=== PATIENT | female | born 1940 | race Caucasian/White ===

== ENCOUNTER 2020-12-01 09:08 | Emergency (ER) | payer MEDICARE, OTHER ==
[2020-12-01] MEDS ORDERED: Sodium Chloride 0.9% 10 ML Syringe FLUSH PRN (09:48)
[2020-12-01] MEDS: fentaNYL 50 MCG/ML SDV IVPUSH ONE ×2 (10:01→11:00)
[2020-12-01 10:12] LABS: CHLORIDE,CL 104 mmol/L (98-107); SODIUM,NA 141 mmol/L (136-145)
--- NOTE | 2020-12-01 10:15 | EDM.PDOC ---
ED HPI GENERAL MEDICAL PROBLEM - General Stated Complaint: RIGHT SIDE PAIN Time Seen by Provider: 12/01/20 09:35 Source of Information: Reports: Patient - History of Present Illness INITIAL COMMENTS - FREE TEXT/NARRATIVE: Jody is an 80 y/o female who comes to the ER with complaints of pain in her RUQ that started about a week ago and has just continued. She now reports that pain has migrated down to her right hip region and then shoots down her right thigh. She was seen by Dr Eid on 11-26 for the RUQ pain and labs were done. Xrays were negative at that time. Dr Eid's note does advised CT if her Chest and Abdomen if her pain persists. She woke up this AM very sweaty. She rates the pain 10. She took a Tramadol about midnight then a Tylenol at 2 am and this has not really seemed to help her pain. She did have a soft light colored stool this AM. - Related Data Allergies Allergy/AdvReac Type Severity Reaction Status Date / Time No Known Allergies Allergy Verified 09/18/15 07:27 Home Meds: Home Meds ALPRAZolam [Alprazolam] 0.25 mg PO Q6H PRN 09/12/15 [History] Aspirin 81 mg PO BRK 09/12/15 [History] Cyclobenzaprine [Flexeril] 5 mg PO TID PRN 09/12/15 [History] Diclofenac Sodium [Voltaren 1% Gel] 1 applic TOP BID PRN 09/12/15 [History] Docusate Sodium [Colace] 100 mg PO BID 09/12/15 [History] Fish Oil/Mehama-3 Fatty Acids [Fish Oil 1,000 MG] 1,000 mg PO TID 09/12/15 [History] Fluticasone Propionate [Flonase] 2 spray NASBOTH DAILY PRN 09/12/15 [History] Losartan Potassium [Cozaar] 200 mg PO DAILY 09/12/15 [History] Melatonin 3 mg PO BEDTIME PRN 09/12/15 [History] Multivitamin [Daily Multiple Vitamin] 1 tab PO DAILY 09/12/15 [History] Naproxen Sodium [Aleve] 220 - 440 mg PO BID PRN 09/12/15 [History] Naproxen [IJD: Naproxen] 500 mg PO BIDMEALS 09/12/15 [History] Pravastatin [Pravachol] 40 mg PO DAILY 09/12/15 [History] Vitamin B Complex [B Complex] 1 each PO DAILY 09/12/15 [History] Sodium Chloride 0.9% [Saline Flush] 10 ml FLUSH ASDIRECTED PRN syringe 12/01/20 [Rx] oxyCODONE 5 mg PO Q8H PRN #5 cup 12/01/20 [Rx] Past Medical History HEENT History: Reports: Cataract Other HEENT History: HEARING DISORDER (BOTH EARS). PRESBYOPIA. HERMATROPIA. MYOPIA Cardiovascular History: Reports: High Cholesterol, Hypertension Other Cardiovascular History: SINUS BRADYCARDIA. PERFORATION OF TYMPANIC MEMBRANE Respiratory History: Reports: None Gastrointestinal History: Reports: GERD Genitourinary History: Reports: Other (See Below) Other Genitourinary History: HEMATURIA Musculoskeletal History: Reports: Arthritis, Back Pain, Chronic Other Musculoskeletal History: ARTHROSCOPY WRIST SURGICAL INT FIXN FX INSTABILITY. WRIST FRACTURE REPAIR. 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 DISORDER OF BONE. CARPAL TUNNEL SYNDROME Neurological History: Reports: None Psychiatric History: Reports: Anxiety, Depression Other Psychiatric History: INSOMNIA. MALAISE AND FATIGUE. HIGH RISK MEDICATION USE Other Endocrine/Metabolic History: RPR RUPTURED MUSCULOTENDINOUS CUFF OPEN ACUTE. HYPERGLYCEMIA. SYMPTOMATIC MENOPAUSAL OR FEMALE CLIMACTERIC STATES Other Hematologic History: CLOTTING DISORDER. 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 - Past Surgical History HEENT Surgical History: Reports: Myringotomy w Tube(s), Tonsillectomy GI Surgical History: Reports: Cholecystectomy, Colonoscopy Musculoskeletal Surgical History: Reports: Arthroscopic Procedure, Knee Replacement Review of Systems - Review of Systems Review Of Systems: See Below Constitutional: Reports: Chills Eyes: Reports: No Symptoms Ears: Reports: No Symptoms Nose: Reports: No Symptoms Mouth/Throat: Reports: No Symptoms Respiratory: Reports: No Symptoms Cardiovascular: Reports: No Symptoms GI/Abdominal: Reports: Abdominal Pain (RUQ pain) Genitourinary: Reports: No Symptoms Musculoskeletal: Reports: Other (Right Hip Pain) Skin: Reports: No Symptoms Neurological: Reports: No Symptoms Psychiatric: Reports: No Symptoms ED EXAM, GENERAL - Physical Exam Exam: See Below General Appearance: Alert, WD/WN, No Apparent Distress (Elderly female, neatly dressed and sitting in a chair.) Eye Exam: Bilateral Eye: PERRL Ears: Normal External Exam, Normal Canal, Hearing Grossly Normal Nose: Normal Inspection, Normal Mucosa Throat/Mouth: Normal Inspection, Normal Lips, Normal Voice Head: Atraumatic, Normocephalic Neck: Supple Respiratory/Chest: No Respiratory Distress, Lungs Clear, Chest Non-Tender Cardiovascular: Normal Peripheral Pulses, Regular Rate, Rhythm, No Murmur GI/Abdominal: Normal Bowel Sounds, Soft, Tender (RUQ) (Female) Exam: Deferred Rectal (Female) Exam: Deferred Extremities: Normal Inspection, No Pedal Edema, Normal Capillary Refill, Other (Note tenderness over right hip region with palpation, ROM normal) Neurological: Alert, Oriented, CN II-XII Intact Psychiatric: Normal Affect, Normal Mood Skin Exam: Warm, Dry, Intact, Normal Color Lymphatic: No Adenopathy Course - Vital Signs Text/Narrative:: 0935 The patient was seen by the GEOLOGIST. Labs and Xrays ordered. She was given Fentanyl 25mcg IVP for pain. 1050 Patient pain returning, Fentanyl 25mcg IVP repeated. Case reviewed with Dr Eid who agrees that patient needs further diagnostic imaging. Currently no CT available here in [place]. Offered to send patient to [place] or [place], both of which she declines at this time. 1135 Pain better from the Fentanyl, but not resolved. Patient still decline going to another hospital for CT Imaging. GEOLOGIST reviewed risks of waiting for imaging and still will wait until available here. Advised the benefits of getting the test today would help make a definitive dx. Patient has the capacity to make her medical decisions and understands the risks. Will send home with Oxycodone along with her APAP since the Tramadol is not helping. She was given written discharge instructions and left the ER in stable condition. Will plan for her to return for CT of Chest/Abd/Pelvis W Contrast when the scanner is up and running, ordered as an outpatient. - Orders/Labs/Meds Orders: Active Orders 24 hr Category Date Time Status CULTURE URINE [RM] Stat Lab 12/01/20 09:30 Received Sodium Chloride 0.9% [Saline Flush] Med 12/01/20 09:48 Active 10 ml FLUSH ASDIRECTED PRN Saline Lock Insert [OM.PC] Stat Oth 12/01/20 09:48 Ordered Medication Orders Sodium Chloride (Sodium Chloride 0.9% 10 Ml Syringe) 10 ml FLUSH ASDIRECTED PRN PRN Reason: Keep Vein Open Labs: Laboratory Tests 12/01/20 12/01/20 12/01/20 Range/Units 09:25 09:25 09:30 WBC 9.8 (4.0-10.0) x10^3/uL RBC 5.12 (4.00-5.50) x10^6/uL Hgb 14.6 (12.0-16.0) g/dL Hct 42.8 (33.0-47.0) % MCV 83.6 (78.0-93.0) fL MCH 28.5 (26.0-32.0) pg MCHC 34.1 (32.0-36.0) g/dL RDW Coeff of Beto 13.3 (10.0-15.0) % Plt Count 316 (130-400) x10^3/uL Immature Gran % (Auto) 0.10 (0.00-0.43) % Neut % (Auto) 69.8 (50.0-80.0) % Lymph % (Auto) 18.4 L (25.0-50.0) % [place] % (Auto) 9.9 (2.0-11.0) % Eos % (Auto) 1.4 (0.0-4.0) % Baso % (Auto) 0.4 (0.2-1.2) % Neut # (Auto) 6.9 (1.8-7.7) x10^3/uL Lymph # (Auto) 1.8 (1.0-4.8) x10^3/uL [place] # (Auto) 1.0 H (0.0-0.8) x10^3/uL Eos # (Auto) 0.1 (0.0-0.5) x10^3/uL Baso # (Auto) 0.0 (0.0-0.2) x10^3/uL Immature Gran # (Auto) 0.01 (0.00-0.07) x10^3/uL Sodium 141 (136-145) mmol/L Potassium 4.2 (3.5-5.1) mmol/L Chloride 104 (98-107) mmol/L Carbon Dioxide 27 (21-32) mmol/L Anion Gap 14.2 (5-15) mmol/L BUN 23 H (7-18) mg/dL Creatinine 0.8 (0.55-1.02) mg/dL Est Cr Clr Drug Dosing TNP Estimated GFR (MDRD) > 60 Glucose 106 H (70-99) mg/dL Calcium 8.7 (8.5-10.1) mg/dL Corrected Calcium 8.9 (8.5-10.1) mg/dL Magnesium 2.1 (1.8-2.4) mg/dL Total Bilirubin 0.9 (0.2-1.0) mg/dL AST 14 L (15-37) U/L ALT 16 (14-59) U/L Alkaline Phosphatase 82 (46-116) U/L C-Reactive Protein 4.0 H (<=0.9) mg/dL Total Protein 7.2 (6.4-8.2) g/dL Albumin 3.8 (3.4-5.0) g/dL Globulin 3.4 Albumin/Globulin Ratio 1.12 Amylase 37 (25-115) U/L Lipase 72 L (73-393) U/L Urine Color Yellow (YELLOW) Urine Appearance Clear (CLEAR) Urine pH 6.0 (5.0-8.0) Ur Specific [place] 1.025 Urine Protein 30 H (NEGATIVE) mg/dL Urine Glucose (UA) Negative (NEGATIVE) mg/dL Urine Ketones Negative (NEGATIVE) mg/dL Urine Occult Blood Small H (NEGATIVE) Urine Nitrite Negative (NEGATIVE) Urine Bilirubin Small H (NEGATIVE) Urine Urobilinogen 0.2 (0.2) EU/dL Ur Leukocyte Esterase Trace H (NEGATIVE) Urine RBC 0-5 (NOT SEEN) /HPF Urine WBC 0-5 (NOT SEEN) /HPF Ur Squamous Epith Cells Moderate H (NOT SEEN) /HPF Urine Bacteria Few H (NOT SEEN) /HPF Urine Mucus Moderate H (NOT SEEN) /LPF Meds: Medications Generic Name Dose Route Start Last Admin Trade Name Freq PRN Reason Stop Dose Admin Sodium Chloride 10 ml 12/01/20 09:48 Sodium Chloride 0.9% 10 Ml Syringe FLUSH ASDIRECTED PRN Keep Vein Open Discontinued Medications Generic Name Dose Route Start Last Admin Trade Name Freq PRN Reason Stop Dose Admin Fentanyl 25 mcg 12/01/20 09:46 12/01/20 10:01 Fentanyl 50 Mcg/Ml Sdv IVPUSH 12/01/20 09:47 25 mcg ONETIME ONE Administration Fentanyl 25 mcg 12/01/20 10:51 12/01/20 11:00 Fentanyl 50 Mcg/Ml Sdv IVPUSH 12/01/20 10:52 25 mcg ONETIME ONE Administration Departure - Departure Time of Disposition: 11:41 Disposition: Home, Self-Care 01 Condition: Good Clinical Impression: RUQ abdominal pain, Hip pain, right - Discharge Information *PRESCRIPTION DRUG MONITORING PROGRAM REVIEWED*: No *COPY OF PRESCRIPTION DRUG MONITORING REPORT IN PATIENT JOAQUÍN: No Prescriptions: oxyCODONE 5 mg PO Q8H PRN #5 cup PRN Reason: Pain (Severe 7-10) Instructions: Hip Pain, Abdominal Pain, Adult Referrals: Nya Eid MD [Primary Care Provider] - Additional Instructions: -Oxycodone 5mg oral every 8 hours as needed for severe pain #5(Rx) -Continue APAP 650mg oral every 4-6 hours -Ice/heat -Return to the ER if pain persists and you want to be transferred for a CT -Follow up with PCP if you prefer - Problem List & Annotations (1) RUQ abdominal pain SNOMED Code(s): 504664234 Code(s): R10.11 - RIGHT UPPER QUADRANT PAIN Status: Acute Current Visit: Yes Annotation/Comment:: CT Chest/Abd/Pelvis W ordered when available. Labs negative today. (2) Hip pain, right SNOMED Code(s): 64768120 Code(s): M25.551 - PAIN IN RIGHT HIP Status: Acute Current Visit: Yes Annotation/Comment:: Sent home with Oxycodone IR 5mg po q 8hr #5 since Tramadol is not working. Advised to continue the APAP. Xrays showed OSteoarthritis, but no other acute findings. - Problem List Review Problem List Initiated/Reviewed/Updated: Yes - My Orders Last 24 Hours: My Active Orders 12/01/20 09:30 CULTURE URINE [RM] Stat 12/01/20 09:48 Sodium Chloride 0.9% [Saline Flush] 10 ml FLUSH ASDIRECTED PRN Saline Lock Insert [OM.PC] Stat - Assessment/Plan Last 24 Hours: My Active Orders 12/01/20 09:30 CULTURE URINE [RM] Stat 12/01/20 09:48 Sodium Chloride 0.9% [Saline Flush] 10 ml FLUSH ASDIRECTED PRN Saline Lock Insert [OM.PC] Stat Plan: See Above.
[2020-12-01 10:21] LABS: ANION GAP 14.2 mmol/L (5-15)
--- NOTE | 2020-12-01 10:49 | CR ---
[id number] RAD/RAD Chest PA or AP 1V EXAM: RAD Chest PA or AP 1V INDICATION: RIGHT UPPER QUADRANT ABDOMEN PAIN. COMPARISON: None. DISCUSSION: Cardiomediastinal silhouette is normal in size and contour. Elevation of the left hemidiaphragm. No infiltrate, effusion, pneumothorax, or edema. IMPRESSION: No acute cardiopulmonary abnormality. Aniceto Guerrero DO 12/01/20 1048 Thank you for allowing us to participate in the care of your patient.
--- NOTE | 2020-12-01 10:51 | CR ---
[id number] RAD/RAD Pelvis 1V W 2V Right Hip EXAM: RAD Pelvis 1V W 2V Right Hip INDICATION: RIGHT HIP PAIN. COMPARISON: None. DISCUSSION: No fracture, dislocation or other acute findings. 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 Mild osteoarthritis. Americo Simmons MD 12/01/20 1049 Thank you for allowing us to participate in the care of your patient.
[2020-12-01 19:41] VITALS: BP 117/67; PULSE 68
== END 2020-12-01 12:05 | disposition home or self-care (01) ==
LOC: VM.ED 09:08
DX: R10.11 Right upper quadrant pain (principal); M25.551 Pain in right hip; I10 Essential (primary) hypertension; E78.00 Pure hypercholesterolemia, unspecified; K21.9 Gastro-esophageal reflux disease without esophagitis; Z79.82 Long term (current) use of aspirin; Z79.899 Other long term (current) drug therapy
CPT/HCPCS: 71045; 80053; 81001; 82150; 83690; 83735; 85025; 86140; 87086; 96374; 96376; 99284; 99284-25; J3010

== ENCOUNTER 2020-12-18 10:38 | Day surgery (SDC) | payer MEDICARE, OTHER ==
[~2020-12-18 10:38] MED LIST: Lactated Ringers 1,000 ML IV SCH
[2020-12-18] MEDS ORDERED: fentaNYL 100 MCG/2 ML SDV ONE (11:35)
[2020-12-18] MEDS ORDERED: Propofol 200 MG/20 ML SDV ONE (11:35)
[2020-12-18 14:05] VITALS: BP 133/60; PULSE 51
--- NOTE | 2020-12-19 08:18 | OR ---
SURGERY DATE: 12/18/2020 REFERRING PROVIDER: Nya Eid MD PRE-OPERATIVE DIAGNOSIS: Abnormal CT scan of abdomen and pelvis showing lower esophageal thickening. The patient was started on omeprazole 20 mg daily. She is usually on the low-dose aspirin and she has been holding for the last week. POST-OPERATIVE DIAGNOSES: 1. 2 cm sliding-type hiatal hernia without any esophagitis. 2. Otherwise normal EGD. Antral biopsies taken using cold forceps. These are for Helicobacter pylori and path. PROCEDURE: SURGEON: Austin Gaming M.D. ANESTHESIA: Monitored anesthesia care. Jody is an 80-year-old female, who was brought to the endoscope suite after discussion of risks and benefits (including but not limited to reaction to medication, bleeding, infection, aspiration, perforation). Informed consent was obtained for monitored anesthesia care and esophagogastroduodenoscopy along with possible biopsy and/or dilatation. Pre-procedure exam including oral cavity unremarkable. The patient does have dentures. IV, oxygen, and monitors were placed. Patient was placed in the left lateral position and sedation was administered. A bite block was placed gently and scope lightly lubricated and passed through the bite block and over the tongue. Hypopharynx and vocal cords were visualized and unremarkable. Scope was passed through the cricopharynx and into the esophagus. The scope was then passed through the distal esophagus and the GE junction was visualized and photographed. The GE junction was remarkable for small 2 cm sliding-type hiatal hernia without any evidence of esophagitis. Vocal cords were visualized and unremarkable. The scope was advanced into the stomach and gastric bello was suctioned. Pylorus was identified and intubated and then the scope was advanced to the third portion of the duodenum. The second portion of duodenum was unremarkable. Duodenal bulb was visualized and unremarkable. The scope was brought back into the stomach and the pylorus and the antrum were unremarkable. Biopsies for H pylori and path were obtained from the antrum. Scope was then retroflexed to visualize the angularis, fundus, body, and cardia. These were unremarkable. The stomach was desufflated of air and then the scope was slowly withdrawn, and the esophagus was closely visualized during withdrawal all the way into the posterior pharynx and this was also unremarkable. The patient tolerated the procedure well and went to recovery in stable condition. The patient was monitored until at baseline status. Findings and discharge instructions were reviewed and the patient was discharged in good condition. COMPLICATIONS: None TOTAL TIME: 6 minutes. ESTIMATED BLOOD LOSS: Less than 1 mL. RECOMMENDATIONS/FOLLOW-UP: We will send out letter with results from the antral biopsies to rule out any presence of H. pylori. The patient can continue omeprazole as needed for symptomatic control, but there was no inflammation seen on this scope procedure today. I would like to kindly thank Dr. Eid for this referral. DMB: 12/18/2020 14:13:48 MODL: 12/18/2020 20:50:35 /[id number]
--- NOTE | 2020-12-19 08:18 | OR ---
DATE OF SURGERY: 12/18/2020 REFERRING PROVIDER: Nya Eid MD PRE-OPERATIVE DIAGNOSES: History of colon polyps. Last colonoscopy in 09/2015, revealed 1 adenoma. POST-OPERATIVE DIAGNOSES: 1. Two small polyps removed using cold forceps. a. 2 mm polyp at 70 cm. b. 3 mm polyp at 55 cm. 2. Mild right-sided diverticulosis. 3. Normal-appearing distal ileum. PROCEDURE: Colonoscopy with polypectomy x2 using cold forceps. SURGEON: Austin Gaming M.D. ANESTHESIA: Monitored anesthesia care. BOWEL PREP: Good. Jody is an 80-year-old female, who was brought to the endoscopy suite after discussing risks and benefits of the procedure. Informed consent was obtained for conscious sedation and colonoscopy with or without biopsy and/or polypectomy. We also discussed possibility of missed lesions. Pre-procedure exam was unremarkable. IV, oxygen, and monitors were placed. The patient was placed in the left lateral decubitus position. Sedation was administered and a digital rectal exam performed and unremarkable. Colonoscope was passed into the rectum and slowly advanced all the way to the cecum. Cecum was viewed and photographed. Ileocecal valve was intubated and distal ileum was normal in appearance. The colonoscope was slowly withdrawn and the mucosa was closed observed in a direct circumferential manner. The ascending colon was remarkable for 2 mm polyp at 70 cm, removed using cold forceps. Transverse colon was remarkable for 3 mm polyp at 55 cm, removed using cold forceps. The right colon was also remarkable for some mild diverticulosis. The descending colon unremarkable. Sigmoid colon unremarkable. Retroflexion was performed. Rectal mucosa unremarkable. Scope was removed. The patient tolerated the procedure well. The patient was monitored until that baseline status. Discharge instructions were reviewed and the patient was discharged in good condition. COMPLICATIONS: None. TOTAL TIME: 22 minutes. ESTIMATED BLOOD LOSS: About 1 mL. RECOMMENDATIONS/FOLLOW-UP: We will await results of path report and send letter with results. Also, I am expecting patient can be done with colonoscopies barring any change in her symptoms down the road. I would like to kindly thank Dr. Eid for this referral. DMB: 12/18/2020 14:16:50 MODL: 12/18/2020 20:33:03 /[id number]
== END 2020-12-18 14:55 | disposition home or self-care (01) ==
LOC: VM.SDS 10:38
PROVIDERS: ATTEND Family Medicine
DX: Z12.11 Encounter for screening for malignant neoplasm of colon (principal); D12.3 Benign neoplasm of transverse colon; D12.2 Benign neoplasm of ascending colon; K57.30 Diverticulosis of large intestine without perforation or abscess without bleeding; K44.9 Diaphragmatic hernia without obstruction or gangrene; I10 Essential (primary) hypertension; K21.9 Gastro-esophageal reflux disease without esophagitis; F41.9 Anxiety disorder, unspecified; Z79.899 Other long term (current) drug therapy; E78.00 Pure hypercholesterolemia, unspecified; Z98.890 Other specified postprocedural states
CPT/HCPCS: 00811; 88305; J2704; J3010

== ENCOUNTER 2022-02-15 13:17 | Emergency (ER) | payer MEDICARE, OTHER ==
[2022-02-15 13:34] VITALS: BP 135/63; PULSE 88
[2022-02-15 14:11] LABS: CHLORIDE,CL 102 mmol/L (98-107); SODIUM,NA 138 mmol/L (136-145)
[2022-02-15 14:18] LABS: ANION GAP 12.1 mmol/L (5-15); ESTIMATED GFR 73 mL/min (>=60)
[2022-02-15] MEDS: methylPREDNISolone Sodium Succinate 125 MG/2 ML SDV IM ONE (14:19)
== END 2022-02-15 15:11 | disposition home or self-care (01) ==
LOC: VM.ED 13:17
DX: M10.9 Gout, unspecified (principal); E78.00 Pure hypercholesterolemia, unspecified; I10 Essential (primary) hypertension; M19.90 Unspecified osteoarthritis, unspecified site; Z79.82 Long term (current) use of aspirin; Z79.899 Other long term (current) drug therapy
CPT/HCPCS: 36415; 80048; 84550; 85025; 85652; 86140; 96372; 99283; J2930

== ENCOUNTER 2022-08-29 07:15 | Emergency (ER) | payer MEDICARE, OTHER ==
[2022-08-29 07:28] VITALS: BP 171/82; PULSE 55
[2022-08-29 08:04] LABS: BASOPHILS PERCENT AUTO 0.2 % (0.2-1.2); EOSINOPHILS ABSOLUTE AUTO 0.1 x10^3/uL (0.0-0.5); EOSINOPHILS PERCENT AUTO 1.3 % (0.0-4.0); HEMOGLOBIN 13.5 g/dL (12.0-16.0); IMMATURE GRAN ABSOLUTE AUTO 0.02 x10^3/uL (0.00-0.07); LYMPHOCYTES ABSOLUTE AUTO 1.4 x10^3/uL (1.0-4.8); LYMPHOCYTES PERCENT AUTO 15.1 % (25.0-50.0); MEAN CORPUSCULAR HEMOGLOBIN 28.2 pg (26.0-32.0); MEAN CORPUSCULAR HGB CONC 32.9 g/dL (32.0-36.0); MEAN CORPUSCULAR VOLUME 85.8 fL (78.0-93.0); MONOCYTES ABSOLUTE AUTO 0.7 x10^3/uL (0.0-0.8); MONOCYTES PERCENT AUTO 7.8 % (2.0-11.0); NEUTROPHILS ABSOLUTE AUTO 7.1 x10^3/uL (1.8-7.7); NEUTROPHILS PERCENT AUTO 75.4 % (50.0-80.0); PLATELET COUNT,PLT 272 x10^3/uL (130-400); RED BLOOD CELL COUNT 4.78 x10^6/uL (4.00-5.50); WHITE BLOOD CELL COUNT,WBC 9.4 x10^3/uL (4.0-10.0)
[2022-08-29 08:17] LABS: BLOOD UREA NITROGEN,BUN 9 mg/dL (7-18); C-REACTIVE PROTEIN 3.72 mg/dL (<=0.30); CALCIUM 8.9 mg/dL (8.5-10.1); CARBON DIOXIDE,CO2 32 mmol/L (21-32); CHLORIDE,CL 103 mmol/L (98-107); CREATININE 0.6 mg/dL (0.55-1.02); GLUCOSE RANDOM 108 mg/dL (70-99); POTASSIUM,K 4.7 mmol/L (3.5-5.1); SODIUM,NA 142 mmol/L (136-145); URIC ACID 4.4 mg/dL (2.6-6.0)
[2022-08-29 08:19] LABS: ANION GAP 11.7 mmol/L (5-15); ESTIMATED GFR 88 mL/min (>=60)
[2022-08-29 08:46] LABS: SEDIMENTATION RATE AUTO 14 mm/hr (0-20)
[2022-08-29] MEDS: Take Home: traMADol 50 MG, 4 Tab Pack PO ONE (09:03)
== END 2022-08-29 09:07 | disposition home or self-care (01) ==
LOC: VM.ED 07:15
DX: M84.475A Pathological fracture, left foot, initial encounter for fracture (principal); M14.671 Charcot's joint, right ankle and foot; E78.00 Pure hypercholesterolemia, unspecified; I10 Essential (primary) hypertension; M19.90 Unspecified osteoarthritis, unspecified site; Z79.899 Other long term (current) drug therapy; Z79.82 Long term (current) use of aspirin
CPT/HCPCS: 36415; 73630-LT; 80048; 84550; 85025; 85652; 86140; 99283; A9270-GY

== ENCOUNTER 2023-10-13 10:18 | Emergency (ER) | payer MEDICARE, OTHER ==
[2023-10-13 10:52] LABS: BASOPHILS PERCENT AUTO 0.2 % (0.2-1.2); EOSINOPHILS ABSOLUTE AUTO 0.1 x10^3/uL (0.0-0.5); HEMATOCRIT 43.9 % (33.0-47.0); HEMOGLOBIN 14.7 g/dL (12.0-16.0); IMMATURE GRAN ABSOLUTE AUTO 0.02 x10^3/uL (0.00-0.07); LYMPHOCYTES ABSOLUTE AUTO 1.6 x10^3/uL (1.0-4.8); LYMPHOCYTES PERCENT AUTO 26.2 % (25.0-50.0); MEAN CORPUSCULAR HEMOGLOBIN 28.4 pg (26.0-32.0); MEAN CORPUSCULAR HGB CONC 33.5 g/dL (32.0-36.0); MEAN CORPUSCULAR VOLUME 84.9 fL (78.0-93.0); MONOCYTES ABSOLUTE AUTO 0.6 x10^3/uL (0.0-0.8); MONOCYTES PERCENT AUTO 10.1 % (2.0-11.0); NEUTROPHILS ABSOLUTE AUTO 3.8 x10^3/uL (1.8-7.7); NEUTROPHILS PERCENT AUTO 62.2 % (50.0-80.0); PLATELET COUNT,PLT 295 x10^3/uL (130-400); RED BLOOD CELL COUNT 5.17 x10^6/uL (4.00-5.50)
[2023-10-13 11:18] LABS: A/G RATIO 1.03; ALANINE AMINOTRANSFERASE,ALT 28 U/L (14-59); ALBUMIN 3.5 g/dL (3.4-5.0); ALKALINE PHOSPHATASE 60 U/L (46-116); ASPARTATE AMNIOTRANSFERASE,AST 27 U/L (15-37); BILIRUBIN TOTAL 0.5 mg/dL (0.2-1.0); BLOOD UREA NITROGEN,BUN 27 mg/dL (7-18); CALCIUM 8.6 mg/dL (8.5-10.1); CARBON DIOXIDE,CO2 32 mmol/L (21-32); CHLORIDE,CL 101 mmol/L (98-107); GLUCOSE RANDOM 107 mg/dL (70-99); PROTEIN TOTAL,TP 6.9 g/dL (6.4-8.2); SODIUM,NA 139 mmol/L (136-145)
[2023-10-13 11:20] LABS: INFLUENZA A NAA NEGATIVE (NEGATIVE); INFLUENZA B NAA NEGATIVE (NEGATIVE); RESPIRATORY SYNCYTIAL VIR NAA NEGATIVE (NEGATIVE)
[2023-10-13 11:20] LABS: ESTIMATED GFR 55 mL/min (>=60)
[2023-10-13 11:23] LABS: CORONAVIRUS COVID-19 NAA POSITIVE (NEGATIVE)
[2023-10-13 16:47] VITALS: BP 133/78; PULSE 81
== END 2023-10-13 15:05 | disposition short-term general hospital (02) ==
LOC: VM.ED 10:18
DX: U07.1 COVID-19 (principal); I48.91 Unspecified atrial fibrillation; R79.89 Other specified abnormal findings of blood chemistry; I10 Essential (primary) hypertension; E78.00 Pure hypercholesterolemia, unspecified; K21.9 Gastro-esophageal reflux disease without esophagitis; Z86.16 Personal history of COVID-19; Z79.899 Other long term (current) drug therapy; Z79.82 Long term (current) use of aspirin
CPT/HCPCS: 0241U; 71045; 80053; 84484; 85025; 93005; 93010; 99284; 99285

== ENCOUNTER 2023-10-25 10:43 | Emergency (ER) | payer MEDICARE, OTHER ==
[2023-10-25] MEDS ORDERED: Sodium Chloride 0.9% 10 ML Syringe FLUSH PRN (11:24)
[2023-10-25 11:32] LABS: BASOPHILS ABSOLUTE AUTO 0.1 x10^3/uL (0.0-0.2); BASOPHILS PERCENT AUTO 0.5 % (0.2-1.2); EOSINOPHILS ABSOLUTE AUTO 0.1 x10^3/uL (0.0-0.5); EOSINOPHILS PERCENT AUTO 1.2 % (0.0-4.0); HEMATOCRIT 36.6 % (33.0-47.0); IMMATURE GRAN ABSOLUTE AUTO 0.05 x10^3/uL (0.00-0.07); LYMPHOCYTES ABSOLUTE AUTO 1.6 x10^3/uL (1.0-4.8); LYMPHOCYTES PERCENT AUTO 16.9 % (25.0-50.0); MEAN CORPUSCULAR HEMOGLOBIN 28.7 pg (26.0-32.0); MEAN CORPUSCULAR HGB CONC 32.8 g/dL (32.0-36.0); MEAN CORPUSCULAR VOLUME 87.6 fL (78.0-93.0); MONOCYTES ABSOLUTE AUTO 0.6 x10^3/uL (0.0-0.8); MONOCYTES PERCENT AUTO 5.8 % (2.0-11.0); NEUTROPHILS ABSOLUTE AUTO 7.2 x10^3/uL (1.8-7.7); NEUTROPHILS PERCENT AUTO 75.1 % (50.0-80.0); PLATELET COUNT,PLT 334 x10^3/uL (130-400); RED BLOOD CELL COUNT 4.18 x10^6/uL (4.00-5.50); WHITE BLOOD CELL COUNT,WBC 9.7 x10^3/uL (4.0-10.0)
[2023-10-25] MEDS: Sodium Chloride 0.9% 500 ML IV ONE (11:41)
[2023-10-25] MEDS: Sodium Chloride 0.9% 1,000 ML IV ONE (11:41)
[2023-10-25] MEDS: Metoprolol Tartrate 5 MG/5 ML SDV IVPUSH ONE ×2 (11:41→12:35)
[2023-10-25 11:43] LABS: INR 1.2 (0.9-1.1); PROTHROMBIN TIME 11.8 SEC (8.9-11.5); PTT,PARTIAL THROMBOPLSTIN TIME 27.5 SEC (21.9-33.8)
[2023-10-25 11:52] LABS: ALANINE AMINOTRANSFERASE,ALT 83 U/L (14-59); ALBUMIN 3.4 g/dL (3.4-5.0); ALKALINE PHOSPHATASE 88 U/L (46-116); ASPARTATE AMNIOTRANSFERASE,AST 49 U/L (15-37); BILIRUBIN TOTAL 0.5 mg/dL (0.2-1.0); BLOOD UREA NITROGEN,BUN 19 mg/dL (7-18); CALCIUM 8.8 mg/dL (8.5-10.1); CARBON DIOXIDE,CO2 29 mmol/L (21-32); CHLORIDE,CL 103 mmol/L (98-107); GLUCOSE RANDOM 107 mg/dL (70-99); MAGNESIUM 1.7 mg/dL (1.8-2.4); POTASSIUM,K 4.1 mmol/L (3.5-5.1); PRO B-TYPE NATRIUR PEPT,BNPPRO 7882 pg/mL (<=450); PROTEIN TOTAL,TP 6.8 g/dL (6.4-8.2); SODIUM,NA 140 mmol/L (136-145)
[2023-10-25 11:56] LABS: ANION GAP 12.1 mmol/L (5-15); ESTIMATED GFR 55 mL/min (>=60)
[2023-10-25] MEDS ORDERED: Metoprolol Tartrate 5 MG/5 ML SDV IVPUSH ONE ×2 (12:38→12:49)
[2023-10-25] MEDS: Diltiazem 50 MG/10 ML SDV IVPUSH ONE (13:44)
[2023-10-25] MEDS: Diltiazem 120 MG Cap.CD PO ONE (15:35)
[2023-10-25 17:43] VITALS: BP 143/96; PULSE 68
== END 2023-10-25 15:38 | disposition home or self-care (01) ==
LOC: VM.ED 10:43
DX: I48.91 Unspecified atrial fibrillation (principal); R94.5 Abnormal results of liver function studies; I10 Essential (primary) hypertension; E78.00 Pure hypercholesterolemia, unspecified; Z86.16 Personal history of COVID-19; Z90.49 Acquired absence of other specified parts of digestive tract; Z90.710 Acquired absence of both cervix and uterus; Z79.01 Long term (current) use of anticoagulants; Z79.899 Other long term (current) drug therapy
CPT/HCPCS: 71045; 80053; 83735; 83880; 84484; 85025; 85610; 85730; 93005; 93010; 96374; 96375; 96376; 99284; 99285; A9270; J3490; J7030

== ENCOUNTER 2023-10-28 10:41 | Emergency (ER) | payer MEDICARE, OTHER ==
[2023-10-28 10:56] LABS: BASOPHILS PERCENT AUTO 0.5 % (0.2-1.2); EOSINOPHILS ABSOLUTE AUTO 0.1 x10^3/uL (0.0-0.5); EOSINOPHILS PERCENT AUTO 1.8 % (0.0-4.0); HEMATOCRIT 37.4 % (33.0-47.0); HEMOGLOBIN 12.4 g/dL (12.0-16.0); IMMATURE GRAN ABSOLUTE AUTO 0.01 x10^3/uL (0.00-0.07); LYMPHOCYTES ABSOLUTE AUTO 1.3 x10^3/uL (1.0-4.8); LYMPHOCYTES PERCENT AUTO 17.1 % (25.0-50.0); MEAN CORPUSCULAR HEMOGLOBIN 28.6 pg (26.0-32.0); MEAN CORPUSCULAR HGB CONC 33.2 g/dL (32.0-36.0); MEAN CORPUSCULAR VOLUME 86.2 fL (78.0-93.0); MONOCYTES ABSOLUTE AUTO 0.5 x10^3/uL (0.0-0.8); MONOCYTES PERCENT AUTO 6.8 % (2.0-11.0); NEUTROPHILS ABSOLUTE AUTO 5.6 x10^3/uL (1.8-7.7); NEUTROPHILS PERCENT AUTO 73.7 % (50.0-80.0); PLATELET COUNT,PLT 322 x10^3/uL (130-400); RED BLOOD CELL COUNT 4.34 x10^6/uL (4.00-5.50); WHITE BLOOD CELL COUNT,WBC 7.6 x10^3/uL (4.0-10.0)
[2023-10-28] MEDS: Diltiazem 50 MG/10 ML SDV IVPUSH ONE (10:58)
[2023-10-28 11:20] LABS: A/G RATIO 0.87; ALANINE AMINOTRANSFERASE,ALT 64 U/L (14-59); ALBUMIN 3.3 g/dL (3.4-5.0); ALKALINE PHOSPHATASE 80 U/L (46-116); ASPARTATE AMNIOTRANSFERASE,AST 37 U/L (15-37); BILIRUBIN TOTAL 0.9 mg/dL (0.2-1.0); BLOOD UREA NITROGEN,BUN 10 mg/dL (7-18); CARBON DIOXIDE,CO2 27 mmol/L (21-32); CHLORIDE,CL 103 mmol/L (98-107); GLUCOSE RANDOM 123 mg/dL (70-99); MAGNESIUM 1.8 mg/dL (1.8-2.4); POTASSIUM,K 3.9 mmol/L (3.5-5.1); PROTEIN TOTAL,TP 7.1 g/dL (6.4-8.2); SODIUM,NA 141 mmol/L (136-145); TSH ULTRASENSITIVE 2.979 uIU/mL (0.358-3.74)
[2023-10-28 11:21] LABS: ANION GAP 14.9 mmol/L (5-15); ESTIMATED GFR 55 mL/min (>=60)
[2023-10-28 16:45] VITALS: BP 132/74; PULSE 71
== END 2023-10-28 12:00 | disposition home or self-care (01) ==
LOC: VM.ED 10:41
DX: I48.91 Unspecified atrial fibrillation (principal); I10 Essential (primary) hypertension; E78.00 Pure hypercholesterolemia, unspecified; K21.9 Gastro-esophageal reflux disease without esophagitis; Z86.16 Personal history of COVID-19; Z87.891 Personal history of nicotine dependence; Z79.899 Other long term (current) drug therapy; Z79.01 Long term (current) use of anticoagulants
CPT/HCPCS: 80053; 83735; 84443; 84484; 85025; 93010; 96374; 99284; 99284-25; J3490

== ENCOUNTER 2023-11-01 08:10 | Emergency (ER) | payer MEDICARE, OTHER ==
[2023-11-01 08:46] LABS: BASOPHILS PERCENT AUTO 0.4 % (0.2-1.2); EOSINOPHILS ABSOLUTE AUTO 0.2 x10^3/uL (0.0-0.5); EOSINOPHILS PERCENT AUTO 2.5 % (0.0-4.0); HEMATOCRIT 36.8 % (33.0-47.0); HEMOGLOBIN 12.2 g/dL (12.0-16.0); IMMATURE GRAN ABSOLUTE AUTO 0.02 x10^3/uL (0.00-0.07); LYMPHOCYTES ABSOLUTE AUTO 1.2 x10^3/uL (1.0-4.8); LYMPHOCYTES PERCENT AUTO 15.8 % (25.0-50.0); MEAN CORPUSCULAR HEMOGLOBIN 28.8 pg (26.0-32.0); MEAN CORPUSCULAR HGB CONC 33.2 g/dL (32.0-36.0); MEAN CORPUSCULAR VOLUME 86.8 fL (78.0-93.0); MONOCYTES ABSOLUTE AUTO 0.6 x10^3/uL (0.0-0.8); MONOCYTES PERCENT AUTO 8.3 % (2.0-11.0); NEUTROPHILS ABSOLUTE AUTO 5.5 x10^3/uL (1.8-7.7); NEUTROPHILS PERCENT AUTO 72.7 % (50.0-80.0); PLATELET COUNT,PLT 309 x10^3/uL (130-400); RED BLOOD CELL COUNT 4.24 x10^6/uL (4.00-5.50); WHITE BLOOD CELL COUNT,WBC 7.6 x10^3/uL (4.0-10.0)
[2023-11-01 09:11] LABS: A/G RATIO 0.89; ALBUMIN 3.3 g/dL (3.4-5.0); BILIRUBIN TOTAL 0.9 mg/dL (0.2-1.0); CALCIUM 8.8 mg/dL (8.5-10.1); CREATININE 0.8 mg/dL (0.55-1.02); EST CRCL DRUG DOSING (CG) 40.66 mL/min; POTASSIUM,K 3.7 mmol/L (3.5-5.1)
[2023-11-01 09:13] LABS: ANION GAP 14.7 mmol/L (5-15)
[2023-11-01] MEDS: Furosemide 20 MG Tab PO ONE (09:28)
[2023-11-01 09:49] VITALS: BP 144/65; PULSE 48
== END 2023-11-01 09:40 | disposition home or self-care (01) ==
LOC: VM.ED 08:10
DX: R06.02 Shortness of breath (principal); I10 Essential (primary) hypertension; E78.00 Pure hypercholesterolemia, unspecified; Z90.49 Acquired absence of other specified parts of digestive tract; Z90.710 Acquired absence of both cervix and uterus; Z79.899 Other long term (current) drug therapy; Z79.01 Long term (current) use of anticoagulants
CPT/HCPCS: 71045; 80053; 84484; 85025; 93005; 93010; 99284; 99285; A9270-GY

== ENCOUNTER 2024-11-17 09:29 | Emergency (ER) | payer OTHER, MEDICARE ==
[2024-11-17 09:54] LABS: BASOPHILS ABSOLUTE AUTO 0.0 x10^3/uL (0.0-0.2); BASOPHILS PERCENT AUTO 0.5 % (0.2-1.2); EOSINOPHILS ABSOLUTE AUTO 0.2 x10^3/uL (0.0-0.5); EOSINOPHILS PERCENT AUTO 2.8 % (0.0-4.0); IMMATURE GRAN ABSOLUTE AUTO 0.01 x10^3/uL (0.00-0.07); IMMATURE GRAN PERCENT AUTO 0.20 % (0.00-0.43); LYMPHOCYTES ABSOLUTE AUTO 1.6 x10^3/uL (1.0-4.8); LYMPHOCYTES PERCENT AUTO 27.3 % (25.0-50.0); MONOCYTES ABSOLUTE AUTO 0.4 x10^3/uL (0.0-0.8); MONOCYTES PERCENT AUTO 7.4 % (2.0-11.0); NEUTROPHILS ABSOLUTE AUTO 3.6 x10^3/uL (1.8-7.7); NEUTROPHILS PERCENT AUTO 61.8 % (50.0-80.0); PLATELET COUNT,PLT 264 x10^3/uL (130-400); RED BLOOD CELL COUNT 4.67 x10^6/uL (4.00-5.50); WHITE BLOOD CELL COUNT,WBC 5.8 x10^3/uL (4.0-10.0)
[2024-11-17 10:14] LABS: BLOOD UREA NITROGEN,BUN 19 mg/dL (7-18); CARBON DIOXIDE,CO2 31 mmol/L (21-32); CHLORIDE,CL 104 mmol/L (98-107); CREATININE 0.8 mg/dL (0.55-1.02); GLUCOSE RANDOM 109 mg/dL (70-99); POTASSIUM,K 4.3 mmol/L (3.5-5.1); PRO B-TYPE NATRIUR PEPT,BNPPRO 1293 pg/mL (<=450); SODIUM,NA 137 mmol/L (136-145)
[2024-11-17 10:15] LABS: ESTIMATED GFR 72 mL/min (>=60)
[2024-11-17 10:53] VITALS: BP 140/86; PULSE 75
== END 2024-11-17 11:05 | disposition home or self-care (01) ==
LOC: VM.ED 09:29
DX: S20.212A Contusion of left front wall of thorax, initial encounter (principal); I11.0 Hypertensive heart disease with heart failure; I50.9 Heart failure, unspecified; I48.91 Unspecified atrial fibrillation; E78.00 Pure hypercholesterolemia, unspecified; I25.2 Old myocardial infarction; K21.9 Gastro-esophageal reflux disease without esophagitis; Z95.1 Presence of aortocoronary bypass graft; Z79.01 Long term (current) use of anticoagulants; Z96.22 Myringotomy tube(s) status; Z79.899 Other long term (current) drug therapy; Z90.710 Acquired absence of both cervix and uterus; V89.2XXA Person injured in unspecified motor-vehicle accident, traffic, initial encounter
CPT/HCPCS: 36415; 71046; 80048; 83880; 84484; 85025; 93005; 93010; 99284; 99285